=== PATIENT | male | born 1955 | race Caucasian/White ===

== ENCOUNTER 2022-10-05 14:12 | Outpatient (CLI) | payer MEDICARE, BC ==
[2022-10-05 15:21] LABS: Hemoglobin 13.4 g/dL (13.5-17.5); Mean Corpuscular HGB CONC 31.9 g/dL (32.0-36.0); Mean Corpuscular Hemoglobin 32.4 pg (27.0-33.0); Mean Corpuscular Volume 101.4 fl (81.2-95.1); Platelet Count 153 10x3/uL (150-450); RBC Distribution Width 14.8 % (11.5-14.5); Red Blood Cell (RBC) Count 4.14 10x6/uL (4.32-5.72); White Blood Cell (WBC) Count 3.6 10x3/uL (3.5-10.5)
[2022-10-05 15:34] LABS: Anion Gap 14 mmol/L (10-20); BUN (Urea Nitrogen) 22 mg/dL (8.4-25.7); Calc. Creatinine Clearance 0 mL/min (70-130); Calcium 8.4 mg/dL (7.8-10.44); Carbon Dioxide 23 mmol/L (23-31); Chloride 106 mmol/L (98-107); Estimated GFR 97; Glucose 120 mg/dL (80-115); Potassium 4.8 mmol/L (3.5-5.1); Sodium 138 mmol/L (136-145)
== END 2022-10-05 14:13 | disposition home or self-care (01) ==
LOC: CSHLAB 14:12
PROVIDERS: ATTEND Orthopaedic Surgery
DX: Z01.818 Encounter for other preprocedural examination (principal)
CPT/HCPCS: 80048; 85027; 93005; 93010

== ENCOUNTER 2022-10-07 10:23 | Day surgery (SDC) | payer MEDICARE, BC ==
[2022-10-05 14:40] VITALS: BMI 25.0
[2022-10-07] MEDS ORDERED: Bupivacaine PF 0.5% 30 ML VIAL ONE (11:53)
[2022-10-07] MEDS ORDERED: CEFAZOLIN 2 GM VIAL ONE (12:31)
[2022-10-07] MEDS ORDERED: Tranexamic Acid 1,000 MG/10 ML VIAL ONE (13:10)
[2022-10-07] MEDS ORDERED: Fentanyl 250 MCG/5 ML VIAL ONE (13:11)
[2022-10-07] MEDS ORDERED: PROPOFOL 20 ML ONE (13:11)
[2022-10-07] MEDS ORDERED: ePHEDrine Sulfate 50 MG/10 ML VIAL ONE (13:21)
[2022-10-07] MEDS ORDERED: Rocuronium Bromide 10 MG/ML (10ML VIAL) ONE (13:21)
[2022-10-07] MEDS ORDERED: Phenylephrine 10 MG/ML VIAL ONE (13:34)
[2022-10-07] MEDS ORDERED: SUGAMMADEX SODIUM 200 MG/2 ML VIAL ONE (14:13)
[2022-10-07] MEDS ORDERED: Promethazine HCl 25 MG/ML VIAL ONE (14:13)
[2022-10-07] MEDS ORDERED: Ropivacaine 0.5% HCl/PF (150 MG/30 ML VIAL) ONE (14:38)
== END 2022-10-07 16:45 | disposition home or self-care (01) ==
LOC: CSHSDC 10:23
PROVIDERS: ATTEND Orthopaedic Surgery
PROC: 0PSC04Z Reposition Right Humeral Head with Internal Fixation Device, Open Approach (ICD-10-PCS; principal; 2022-10-07)
DX: S42.211A Unspecified displaced fracture of surgical neck of right humerus, initial encounter for closed fracture (principal); M19.90 Unspecified osteoarthritis, unspecified site; K21.9 Gastro-esophageal reflux disease without esophagitis; E11.9 Type 2 diabetes mellitus without complications; I85.00 Esophageal varices without bleeding; G47.33 Obstructive sleep apnea (adult) (pediatric); Z79.899 Other long term (current) drug therapy; Z98.890 Other specified postprocedural states; W19.XXXA Unspecified fall, initial encounter
CPT/HCPCS: 23615; 73030; C1713 ×5; J2370; J2550; J2704; J2795; J3010; S0020